=== PATIENT | female | born 1975 | race Caucasian/White ===

== ENCOUNTER 2018-03-13 08:06 | Emergency (ER) | payer MEDICAID ==
[~2018-03-13] VITALS: Ht 157.5 cm; Wt 59.9 kg
[2018-03-13] MEDS ORDERED: KETOROLAC TROMETH 30 MG/ML 1ML VIAL IV ONE (08:30)
[2018-03-13] MEDS ORDERED: SODIUM CHLORIDE 0.9% 1,000 ML IV ONE (08:30)
[2018-03-13 08:37] LABS: Basophils # (auto) 0 uL; Basophils % (auto) 0.1 % (0.0-2.0); Eosinophils # (auto) 0 uL; Eosinophils % (auto) 0.1 % (0.0-7.0); Hematocrit 36.4 % (36.0-46.0); Hemoglobin 12.7 g/dL (12.2-16.2); Lymphocytes # (auto) 0.7 uL; Lymphocytes % (auto) 6.7 % (10.0-50.0); Mean Corpuscular Hemoglobin 32.1 pg (28.0-32.0); Mean Corpuscular Volume 91.8 fL (80.0-100.0); Monocytes # (auto) 0.6 uL; Monocytes % (auto) 5.9 % (0.0-12.0); Neutrophils # (auto) 8.7 uL; Neutrophils % (auto) 87.2 % (37.0-80.0); Platelet Count (auto) 195 10^3/uL (140-450); Red Blood Cells 3.96 10^6/uL (4.0-5.20); Red Cell Distribution Width 12.4 % (11.8-14.3)
[2018-03-13 08:47] LABS: Urine Bacteria MOD /hpf (None Seen); Urine Blood 1+ /uL (Negative); Urine Mucus FEW (None Seen); Urine Specific Gravity 1.016 (1.001-1.035); Urine WBC 721 /hpf (0 - 5); Urine WBC Clumps PRESENT /hpf (None Seen)
[2018-03-13 08:51] LABS: Albumin 3.8 g/dL (3.4-5.0); Calcium 8.8 mg/dL (8.5-10.1)
[2018-03-13 08:54] LABS: BUN/Creatinine Ratio 15.4; Bilirubin, Total 0.9 mg/dL (0.2-1.0)
[2018-03-13] MEDS ORDERED: cefTRIAXone 1GM/50ML D5W 50 ML IV ONE (09:45)
[2018-03-13 10:15] VITALS: BP 105/56
== END 2018-03-13 10:28 | disposition home or self-care (01) ==
LOC: ER 08:06
DX: N39.0 Urinary tract infection, site not specified (principal)
CPT/HCPCS: 36415; 80053; 81001; 81025; 85025; 96361; 96365; 96375; 99284; J0696; J1885; J7030; 96374

== ENCOUNTER 2018-06-22 09:11 | Emergency (ER) | payer MEDICAID ==
[~2018-06-22] VITALS: Ht 162.6 cm; Wt 57.6 kg
[2018-06-22 10:15] VITALS: BP 122/76
[2018-06-22] MEDS ORDERED: ACETAMINOPHEN 325 MG TAB PO ONE (11:00)
== END 2018-06-22 11:30 | disposition home or self-care (01) ==
LOC: ER 09:11
DX: J03.90 Acute tonsillitis, unspecified (principal); F41.9 Anxiety disorder, unspecified; R07.89 Other chest pain
CPT/HCPCS: 71046; 93005

== ENCOUNTER 2018-09-21 15:50 | Emergency (ER) | payer MEDICAID ==
[~2018-09-21] VITALS: Ht 157.5 cm; Wt 61.2 kg
[2018-09-21 17:04] LABS: Basophils # (auto) 0 uL; Basophils % (auto) 0.5 % (0.0-2.0); Eosinophils # (auto) 0.2 uL; Eosinophils % (auto) 3.1 % (0.0-7.0); Hematocrit 37.5 % (36.0-46.0); Hemoglobin 13.2 g/dL (12.2-16.2); Lymphocytes # (auto) 1.7 uL; Lymphocytes % (auto) 34.9 % (10.0-50.0); Mean Corpuscular Hemoglobin 32.6 pg (28.0-32.0); Mean Corpuscular Hgb Conc. 35.1 g/dL (32.0-36.0); Mean Corpuscular Volume 92.8 fL (80.0-100.0); Monocytes # (auto) 0.5 uL; Monocytes % (auto) 11.1 % (0.0-12.0); Neutrophils # (auto) 2.5 uL; Neutrophils % (auto) 50.4 % (37.0-80.0); Nucleated Red Blood Cells % 0.1 %; Platelet Count (auto) 200 10^3/uL (140-450); Red Blood Cells 4.04 10^6/uL (4.0-5.20); Red Cell Distribution Width 12.6 % (11.8-14.3); White Blood Cell 4.9 10^3/uL (4.4-10.8)
[2018-09-21 17:07] LABS: Urine Bacteria NONE SEEN /hpf (None Seen); Urine Blood Negative /uL (Negative); Urine Specific Gravity 1.003 (1.001-1.035); Urine WBC 1 /hpf (0 - 5)
[2018-09-21 18:13] VITALS: BP 117/78
[2018-09-21 18:47] LABS: Anion Gap 7 (5-15); Carbon Dioxide 25 mmol/L (21-32); Chloride 107 mmol/L (98-107); Potassium 3.6 mmol/L (3.5-5.1); Sodium 139 mmol/L (136-145)
[2018-09-21 18:48] LABS: Alanine Aminotransferase 17 U/L (13-56); Alkaline Phosphatase 44 U/L (45-117); Aspartate Aminotransferase 12 U/L (15-37); Bilirubin, Total 0.3 mg/dL (0.2-1.0); Blood Urea Nitrogen 18 mg/dL (7-18); GFR African American 109 mL/min; GFR Non-African American 90 mL/min; Glucose 150 mg/dL (74-106)
[2018-09-21 18:49] LABS: Albumin 3.9 g/dL (3.4-5.0); Magnesium 2.5 mg/dL (1.6-2.6)
[2018-09-21] MEDS ORDERED: LORazepam 0.5 MG TAB PO ONE ×2 (19:00)
== END 2018-09-21 19:04 | disposition home or self-care (01) ==
LOC: ER 15:50
DX: F41.9 Anxiety disorder, unspecified (principal)
CPT/HCPCS: 36415; 71046; 80053; 81001; 83735; 83880; 84443; 84484; 85025; 85379; 93005

== ENCOUNTER 2024-12-01 06:22 | Outpatient (CLI) | payer MEDICAID | END 2024-12-01 17:00 | disposition home or self-care (01) | LOC: LAB 06:22 | DX: N39.0 Urinary tract infection, site not specified (principal) | CPT/HCPCS: 87086 ==